=== PATIENT | male | born 1940 | race Caucasian/White ===

== ENCOUNTER 2018-09-15 07:28 | Day surgery (SDC) | payer MEDICARE ==
[~2018-09-15] VITALS: Ht 180.3 cm; Wt 94.3 kg
[~2018-09-15 07:28] MED LIST: ATEN25 PO; ATOR20 PO; GUAI120S1 PO; METO50ER PO; Omeprazole20 M1 PO; POTA10T PO; Sudogest60 MG PO
--- NOTE | 2018-09-15 07:58 | NUR ---
History, Chart, Medications and Allergies reviewed before start of procedure. Patient confirms NPO status and agrees with scheduled surgery. Lungs clear T/O to Auscultation. Patient States Post-Procedure ride home has been arranged with [employer].
--- NOTE | 2018-09-15 13:34 | NUR ---
PATIENT WITH UNMEASURED VOID. WILL DRESS AND D/C HOME.
--- NOTE | 2018-09-15 13:44 | NUR ---
PATIENT UP TO AMBULATE, STEADY AT BASELINE. PER DR GARCIA ORDERS OK TO DISCHARGE HOME.
== END 2018-09-15 13:55 | disposition home or self-care (01) ==
LOC: ORSCMMR 07:28 → ORD 09:15 → ORSCMMR 09:15 → ORD 10:00 → ORSCMMR 13:55
PROVIDERS: Surgery
PROC: 8E0W4CZ Robotic Assisted Procedure of Trunk Region, Percutaneous Endoscopic Approach (ICD-10-PCS; principal; 2018-09-15 09:15)
PROC: 0YU54JZ Supplement Right Inguinal Region with Synthetic Substitute, Percutaneous Endoscopic Approach (ICD-10-PCS; principal; 2018-09-15 09:15)
DX: K40.90 Unilateral inguinal hernia, without obstruction or gangrene, not specified as recurrent (principal); I10 Essential (primary) hypertension; K21.9 Gastro-esophageal reflux disease without esophagitis; Z79.899 Other long term (current) drug therapy
CPT/HCPCS: 49650; S2900; A9270-GY; C1781; J0690; J1100; J1885; J2250; J2405; J2704; J2710; J3010; J7120

== ENCOUNTER → 2021-11-13 | Outpatient (CLI) | payer MEDICARE | END | disposition home or self-care (01) | LOC: LAB 11:00 → LAB SHORT 11:00 | DX: L08.9 Local infection of the skin and subcutaneous tissue, unspecified (principal) | CPT/HCPCS: 87070; 87075; 87205 ==

== ENCOUNTER 2023-09-20 09:28 | Day surgery (SDC) | payer MEDICARE ==
[~2023-09-20] VITALS: Ht 177.8 cm; Wt 92.5 kg
[2023-09-20] VITALS (14 sets, daily range): BP systolic 99–165; BP diastolic 52–102
[~2023-09-20 09:28] MED LIST changes: +EUTHYROX50 MCG PO; +OMEP20ER PO; -Omeprazole20 M1 PO
[2023-09-20] MEDS ORDERED: Prochlorperazine Edisylate 10 mg Vial IV PRN (11:00)
[2023-09-20] MEDS ORDERED: Promethazine HCl 25 MG Tab PO PRN (11:00)
[2023-09-20] MEDS ORDERED: DiphenhydrAMINE HCL 25 MG Cap PO PRN (11:00)
[2023-09-20] MEDS ORDERED: Bisacodyl 10 MG Supp PR PRN (11:00)
[2023-09-20] MEDS ORDERED: OxyCODONE HCL 5 MG TAB PO PRN ×2 (11:00→11:05)
[2023-09-20] MEDS ORDERED: Metoclopramide HCl 5MG / ML 2ML Vial IV PRN (11:05)
[2023-09-20] MEDS ORDERED: Ondansetron HCl 2 MG / ML 2ML Vial IV PRN (11:05)
[2023-09-20] MEDS ORDERED: HYDROmorphone HCl/Pf 1MG SYR IV PRN (11:05)
[2023-09-20] MEDS ORDERED: Magnesium Hydroxide Conc 10 ML UDC PO PRN (11:05)
[2023-09-20] MEDS ORDERED: Ropivacaine 0.5% HCl/Pf 123.125 MG,EPINEPHrine HCL 0.25 MG,Ketorolac Tromethamine 15 MG... INFIL SCH (11:10)
[2023-09-20] MEDS ORDERED: CeFAZolin Sodium 2,000 MG in NS 100 ML IV SCH ×2 (11:10→21:00)
[2023-09-20] MEDS ORDERED: Acetaminophen 500 MG Tab PO SCH ×2 (11:10→16:00)
[2023-09-20] MEDS ORDERED: Chlorhexidine Mouth Care 15 ML UDC MT SCH (11:10)
[2023-09-20] MEDS ORDERED: OxyCODONE HCL 10 MG TABCR PO SCH (11:10)
[2023-09-20] MEDS ORDERED: Lactated Ringer's 1,000 ML IV SCH ×2 (11:10)
[2023-09-20] MEDS ORDERED: Tranexamic Acid 100 ML IV SCH (11:17)
--- NOTE | 2023-09-20 11:34 | NUR ---
Ambulatory in Day Surgery. Patient confirms NPO status and agrees with scheduled surgery. Patient reports completing Chlorhexadine shower X2 prior to admission to hospital. Surgical site prepped with 2% Chlorhexidine cloth wipe. History, Chart, Medications and Allergies reviewed before start of procedure. Lungs clear T/O to Auscultation.
[2023-09-20] MEDS ORDERED: FentaNYL Citrate 50 MCG/ML 2 ML Injection ONE (12:50)
[2023-09-20] MEDS ORDERED: propofoL 20 ML IV ONE (12:51)
[2023-09-20] MEDS ORDERED: Dexamethasone Sod Phos 10 MG/ML 1ML VIAL ONE (13:50)
[2023-09-20] MEDS ORDERED: Rocuronium Bromide 10 MG/ML 5ML Injection IV ONE (13:50)
[2023-09-20] MEDS ORDERED: Phenylephrine HCl 100 MCG/ML-NS 10MLSYR (1MG/10ML) ONE (13:50)
[2023-09-20] MEDS ORDERED: Ondansetron HCl 2 MG / ML 2ML Vial ONE (13:50)
--- NOTE | 2023-09-20 13:50 | NUR ---
09/20/23 1350 Nola Wu SPINAL NERVE BLOCK COMPLETED BY DR. STEINER UPON ENTRY TO OR. PT TOLERATED WELL. PT INTUBATED BY DR. STEINER AFTER SPINAL NERVE BLOCK
[2023-09-20] MEDS ORDERED: Sugammadex Sodium 200 MG/2ML SDV (100 MG/ML) ONE (14:40)
--- NOTE | 2023-09-20 16:05 | NUR ---
PT ARRIVED TO THE ROOM AT APPROXOMATELY 1545. PT IS ALERT AND ORIENTED. PT IS ABLE TO MOVE BUE EQUALLY, PT HAS MINIMAL MOVEMENT TO BLE AND DECREASED SENSATION R/T SPINAL ANESTHESIA. SPINAL ANESTHESIA SITE WNL. PT PROVIDED WITH CALL LIGHT AND EDUCATED TO USE. PT DENIES PAIN AT THIS TIME.
[2023-09-20] MEDS ORDERED: Metoprolol Succinate 50 MG TABCR PO SCH (18:00)
[2023-09-20] MEDS ORDERED: Ketorolac Tromethamine 15mg Vial IV SCH (18:00)
[2023-09-20] MEDS ORDERED: ASPI81CH PO (18:42)
--- NOTE | 2023-09-20 19:33 | NUR ---
SHIFT SUMMARY PT ARRIVED BACK TO THE ROOM POST-OP AT 1545. PT ALERT AND ORIENTED, PAIN MANAGED. PT EXPRESSED WISHES TO DISCHARGE HOME TONIGHT. PT ENCOURAGED TO STAY OVERNIGHT FOR PHYSICAL THERAPY. PT DECLINED AND STATED HE UNDERSTOOD THE RISKS OF GOING HOME WITHOUT THERAPY. PT EDUCATED THAT HE MUST BE ABLE TO VOID, VSS AND POST-OP VS COMPLETE, TOLERATE PO AND AMBULATE PRIOR TO DISCHARGE. PT STATED UNDERSTANDING. HE WAS ABLE TO VOID A SMALL AMOUNT. VSS, BP SLIGHTLY ELEVATED, BP MEDICATION GIVEN. SWELLING TO R HIP UNCHANGED SINCE PT ARRIVED POST-OP. BEDSIDE REPORT GIVEN TO KACI COMBS.
[2023-09-20] MEDS ORDERED: Docusate Sodium 100 MG Cap PO SCH (21:00)
--- NOTE | 2023-09-20 23:41 | NUR ---
ASSUMED CARE/DISCHARGE PRIYANKA WAS ALERT FULLY ORIENTED AND AMBULATING WELL, DRESSING WAS C/D/I, PT VOIDING APPOPRIATELY. PT GIVEN DOSE OF ABX, AND WAS DETERMINED TO GO HOME. PT SENSATION/ PULSES INTACT. PT HELPED INTO HIS DAUGHTERS CAR AT AROUND 2100.
[2023-09-21] MEDS ORDERED: Omeprazole 20 MG CapCR PO SCH (06:00)
[2023-09-21] MEDS ORDERED: Levothyroxine Sodium 0.05 MG Tab PO SCH (06:00)
[2023-09-21] MEDS ORDERED: Aspirin 81 MG Chew PO SCH (09:00)
[2023-09-21] MEDS ORDERED: Potassium Chloride 10 Meq Tablet SA PO SCH (09:00)
[2023-09-21] MEDS ORDERED: Atorvastatin 10 MG Tab PO SCH (09:00)
== END 2023-09-20 20:36 | disposition home or self-care (01) ==
LOC: ORSCMMR 09:28 → ORD 11:00 → SURS 15:40 → ORSCMMR 20:36
PROVIDERS: Orthopaedic Surgery
PROC: 0SR90JZ Replacement of Right Hip Joint with Synthetic Substitute, Open Approach (ICD-10-PCS; principal; 2023-09-20 11:00)
DX: M16.11 Unilateral primary osteoarthritis, right hip (principal); Z96.651 Presence of right artificial knee joint; I10 Essential (primary) hypertension; E78.5 Hyperlipidemia, unspecified; E03.9 Hypothyroidism, unspecified; K21.9 Gastro-esophageal reflux disease without esophagitis; Z79.899 Other long term (current) drug therapy
CPT/HCPCS: 72170; A9270; C1776; J0171; J0690; J0735; J1100; J1885; J2371; J2405; J2704; J2795; J3010; J7120

== ENCOUNTER 2023-11-07 14:16 | Emergency (ER) | payer MEDICARE ==
[~2023-11-07] VITALS: Ht 177.8 cm; Wt 90.7 kg
[~2023-11-07 14:16] MED LIST changes: +ASPI81CH PO
[2023-11-07 15:09] LABS: BASOPHILS ABSOLUTE AUTO 0.02 K/mm3 (0.00-0.23); BASOPHILS PERCENT AUTO 0 % (0-2); EOSINOPHILS ABSOLUTE AUTO 0.02 K/mm3 (0.00-0.68); EOSINOPHILS PERCENT AUTO 0 % (0-6); IMMATURE GRAN ABSOLUTE AUTO 0.03 K/mm3 (0.00-0.10); IMMATURE GRAN PERCENT AUTO 0 % (0-1); LYMPHOCYTES ABSOLUTE AUTO 0.73 K/mm3 (0.84-5.20); LYMPHOCYTES PERCENT AUTO 10 % (21-46); MONOCYTES PERCENT AUTO 12 % (4-13); Mean Corpuscular HGB 29.5 pg (26.0-34.0); Mean Corpuscular HGB Conc 33.3 g/dL (31.5-36.5); Mean Corpuscular Volume 89 fL (80-100); Mean Platelet Volume 10.6 fL (9.1-12.4); NEUTROPHILS ABSOLUTE AUTO 6.02 K/mm3 (1.96-9.15); NEUTROPHILS PERCENT AUTO 78 % (41-73); Platelet Count 148 K/mm3 (150-400); RDW Coefficient Variation 12.2 % (11.7-14.2); RDW Standard Deviation 39.7 fL (35.1-46.3); Red Blood Cell Count 4.07 M/mm3 (4.30-5.90); White Blood Cell Count 7.72 K/mm3 (4.00-11.30)
[2023-11-07 15:31] LABS: Albumin/Globulin Ratio 0.8 (0.8-1.8); Bilirubin, Total 0.8 mg/dL (0.1-1.0); Calcium, Blood 8.6 mg/dL (8.5-10.1); Creatinine, Blood 1.05 mg/dL (0.60-1.20); Globulin, Blood 3.8 g/dL (2.2-4.0); Potassium, Blood 3.4 mmol/L (3.5-5.5); Total Protein, Blood 6.8 g/dL (6.4-8.2)
[2023-11-07 15:33] LABS: Source, Urine Clean Catch
[2023-11-07 15:38] LABS: Magnesium, Blood 1.4 mg/dL (1.6-2.4)
[2023-11-07 15:39] LABS: Appearance, Urine Cloudy (Clear); Bilirubin, Urine Neg (Neg); Blood, Urine 5+ (Neg); Color, Urine Yellow (P-Yellow); Glucose Qualitative, Urine Neg (Neg); Ketones, Urine Neg (Neg); Leukocyte Esterase, Urine 3+ (Neg); Nitrite, Urine Neg (Neg); Protein, Urine 2+ (Neg); Urobilinogen, Urine NORM (Normal)
[2023-11-07 15:40] LABS: Thyroid Stimulating Hormone 1.6 uIU/mL (0.360-4.800)
[2023-11-07 15:51] LABS: White Blood Cells, Urine TNTC /hpf (0-5)
[2023-11-07 15:52] LABS: Red Blood Cells, Urine 25-50 /hpf (0-2); Renal Epithelial Few /hpf (0-Rare)
[2023-11-07 15:53] LABS: Bacteria Many /hpf; Squamous Epithelial Cells Few /hpf (Few)
[2023-11-07] MEDS ORDERED: Magnesium Sulf 2 GM/Water 50ML 50 ML IV ONE (15:55)
[2023-11-07] MEDS ORDERED: Potassium Chloride 20 MEQ TabCR PO ONE (15:55)
[2023-11-07] MEDS ORDERED: CefTRIAXone Sodium 1,000 MG in NS 100 ML IV ONE (15:55)
[2023-11-07] MEDS ORDERED: CEFD300 PO (16:31)
[2023-11-07 17:28] VITALS: BP 126/82
== END 2023-11-07 18:39 | disposition home or self-care (01) ==
LOC: ER 14:16
PROVIDERS: Emergency Medicine
DX: N39.0 Urinary tract infection, site not specified (principal); E83.42 Hypomagnesemia; E87.6 Hypokalemia; I10 Essential (primary) hypertension; E03.9 Hypothyroidism, unspecified; K21.9 Gastro-esophageal reflux disease without esophagitis; Z96.641 Presence of right artificial hip joint; Z79.890 Hormone replacement therapy; Z79.899 Other long term (current) drug therapy; Z79.82 Long term (current) use of aspirin; Z88.2 Allergy status to sulfonamides; Z88.8 Allergy status to other drugs, medicaments and biological substances; Z88.5 Allergy status to narcotic agent
CPT/HCPCS: 80053; 81001; 83735; 84443; 85025; 87077; 87086; 87186; 93005; 93010; 96365; 96366; 96367; 99285-25; A9270; J0696; J3475